=== PATIENT | male | born 1965 | race Caucasian/White ===

== ENCOUNTER 2023-01-14 20:51 | Inpatient (IN) | payer MEDICAID, OTHER ==
[~2023-01-14] VITALS: Ht 188 cm; Wt 151.0 kg
[2023-01-14 22:07] LABS: Basophils # (auto) 0.2 10 ^3/uL (0-0.2); Basophils % (auto) 1.5 % (0.0-2.0); Eosinophils # (auto) 0.3 10 ^3/uL (0-0.8); Eosinophils % (auto) 2.6 % (0.0-7.0); Hematocrit 42.9 % (41.0-53.0); Hemoglobin 14.6 g/dL (13.5-17.5); Lymphocytes # (auto) 1.7 10 ^3/uL (0.4-5.4); Lymphocytes % (auto) 13.2 % (10.0-50.0); Mean Corpuscular Hemoglobin 29.7 pg (28.0-32.0); Mean Corpuscular Hgb Conc. 34.1 g/dL (32.0-36.0); Mean Corpuscular Volume 87.1 fL (80.0-100.0); Monocytes # (auto) 1.4 10 ^3/uL (0-1.3); Monocytes % (auto) 10.3 % (0.0-12.0); Neutrophils # (auto) 9.6 10 ^3/uL (1.6-8.6); Neutrophils % (auto) 72.4 % (37.0-80.0); Nucleated Red Blood Cells % 0.3 %; Red Blood Cells 4.93 10^6/uL (4.5-5.90); Red Cell Distribution Width 15.2 % (11.8-14.3); White Blood Cell 13.2 10^3/uL (4.4-10.8)
[2023-01-14 22:33] LABS: Albumin 2.9 g/dL (3.4-5.0); Calcium 9.2 mg/dL (8.5-10.1); Potassium 4.4 mmol/L (3.5-5.1)
[2023-01-14 22:37] LABS: BUN/Creatinine Ratio 15.5 (10.0-20.0)
[2023-01-15] MEDS ORDERED: FUROSEMIDE 40 MG/4 ML VIAL IV ONE (00:15)
[2023-01-15] MEDS ORDERED: VANCOMYCIN 1GM/250ML 250 ML IV ONE (00:15)
[2023-01-15] MEDS ORDERED: PIPERACILLIN-TAZOB 3.375GM 100 ML IV ONE (00:15)
[2023-01-15] MEDS ORDERED: DEXTROSE (50%) 50ML SYRG IV PRN (02:00)
[2023-01-15] MEDS ORDERED: ONDANSETRON HCL 4 MG/2 ML VIAL IV PRN (02:00)
[2023-01-15 02:33] LABS: Urine Bacteria FEW /hpf (None Seen); Urine Blood TRACE /uL (Negative); Urine Hyaline Cast FEW /lpf (0 - 2); Urine Specific Gravity 1.015 (1.001-1.035); Urine WBC 1 /hpf (0 - 3)
[2023-01-15] MEDS: ACETAMINOPHEN 325 MG TAB PO PRN ×3 (04:24→19:46)
[2023-01-15] MEDS ORDERED: CLINDAMYCIN 600MG IV 50 ML IV SCH (06:00)
[2023-01-15] MEDS: ACCU-CHEK COMFORT CURVE STRIP VI SCH ×4 (06:39→21:58)
[2023-01-15] MEDS: InsuLIN REG 1unit/0.01ml Soln (100units/ml) SC SCH ×4 (06:39→21:58)
[2023-01-15] MEDS ORDERED: VANCOMYCIN PER PHARMACY 0 MG IV SCH (07:00)
[2023-01-15] MEDS: cefTRIAXone 1GM/50ML D5W 50 ML IV SCH (09:55)
[2023-01-15] MEDS ORDERED: PANTOPRAZOLE 40 MG TAB PO SCH (10:00)
[2023-01-15] MEDS: NIFEdipine ER 30 MG TAB PO SCH (10:30)
[2023-01-15] MEDS: METOPROLOL TARTRATE 25 MG TAB PO SCH ×2 (10:31→21:58)
[2023-01-15] MEDS: ENOXAPARIN SOD 30 MG/0.3 ML SYRINGE SC SCH (10:32)
[2023-01-15] MEDS: HYDROcodone-ACET 5/325MG TAB PO PRN (10:43)
[2023-01-15] MEDS: VANCOMYCIN 1GM/250ML 250 ML IV SCH (14:03)
[2023-01-15] MEDS: ATORVASTATIN 20 MG TAB PO SCH (21:57)
[2023-01-15] MEDS ORDERED: ATOR10TA52 PO (22:19)
[2023-01-15] MEDS ORDERED: METO25TA5 PO (22:19)
[2023-01-15] MEDS ORDERED: SITA25TA3 PO (22:19)
[2023-01-15] MEDS ORDERED: NIFE90TA75 (22:19)
[2023-01-15] MEDS ORDERED: ASPI81CH59 PO (22:19)
[2023-01-15] MEDS ORDERED: GLIP10TA9 PO (22:19)
[2023-01-15] MEDS ORDERED: LISI10TA34 PO (22:19)
[2023-01-15] MEDS ORDERED: FURO1TAB33 PO (22:19)
[2023-01-15] MEDS ORDERED: ERGO1CAP12 PO (22:19)
[2023-01-15 22:21] VITALS: BP 146/78
[2023-01-16] MEDS: VANCOMYCIN 1GM/250ML 250 ML IV SCH ×2 (02:10→14:05)
[2023-01-16 05:00] VITALS: BP_SYST 143; BP_SYST 149; BP_DIAS 64; BP_DIAS 74
[2023-01-16] MEDS: ACETAMINOPHEN 325 MG TAB PO PRN (05:16)
[2023-01-16 06:07] LABS: Basophils # (auto) 0.1 10 ^3/uL (0-0.2); Eosinophils # (auto) 0.4 10 ^3/uL (0-0.8); Eosinophils % (auto) 3.1 % (0.0-7.0); Hematocrit 43.5 % (41.0-53.0); Hemoglobin 14.5 g/dL (13.5-17.5); Lymphocytes # (auto) 1.2 10 ^3/uL (0.4-5.4); Lymphocytes % (auto) 10.9 % (10.0-50.0); Mean Corpuscular Hemoglobin 29.6 pg (28.0-32.0); Mean Corpuscular Hgb Conc. 33.4 g/dL (32.0-36.0); Mean Corpuscular Volume 88.4 fL (80.0-100.0); Monocytes # (auto) 1.2 10 ^3/uL (0-1.3); Monocytes % (auto) 10.3 % (0.0-12.0); Neutrophils # (auto) 8.4 10 ^3/uL (1.6-8.6); Neutrophils % (auto) 74.7 % (37.0-80.0); Nucleated Red Blood Cells % 0.2 %; Red Blood Cells 4.92 10^6/uL (4.5-5.90); Red Cell Distribution Width 14.8 % (11.8-14.3); White Blood Cell 11.3 10^3/uL (4.4-10.8)
[2023-01-16 06:13] LABS: Calcium 8.8 mg/dL (8.5-10.1); Magnesium 2.4 mg/dL (1.6-2.6); Potassium 4.9 mmol/L (3.5-5.1)
[2023-01-16 06:15] LABS: BUN/Creatinine Ratio 13.5 (10.0-20.0)
[2023-01-16] MEDS: ACCU-CHEK COMFORT CURVE STRIP VI SCH ×4 (06:35→23:15)
[2023-01-16] MEDS: InsuLIN REG 1unit/0.01ml Soln (100units/ml) SC SCH ×4 (06:36→22:00)
[2023-01-16 09:14] VITALS: BP 147/73
[2023-01-16] MEDS: ENOXAPARIN SOD 30 MG/0.3 ML SYRINGE SC SCH (09:16)
[2023-01-16] MEDS: cefTRIAXone 1GM/50ML D5W 50 ML IV SCH (09:16)
[2023-01-16] MEDS: METOPROLOL TARTRATE 25 MG TAB PO SCH ×2 (09:18→23:10)
[2023-01-16] MEDS: NIFEdipine ER 30 MG TAB PO SCH (09:27)
[2023-01-16 13:00] VITALS: BP 149/73
[2023-01-16 16:40] VITALS: BP 164/83
[2023-01-16 20:15] VITALS: BP 157/80
[2023-01-16 22:00] VITALS: BP_SYST 130; BP_SYST 157; BP_DIAS 80; BP_DIAS 82
[2023-01-16] MEDS: ATORVASTATIN 20 MG TAB PO SCH (23:11)
[2023-01-17] MEDS: VANCOMYCIN 1GM/250ML 250 ML IV SCH ×2 (02:13→14:37)
[2023-01-17 05:00] VITALS: BP 141/71
[2023-01-17] MEDS: ACCU-CHEK COMFORT CURVE STRIP VI SCH ×4 (06:39→21:43)
[2023-01-17] MEDS: InsuLIN REG 1unit/0.01ml Soln (100units/ml) SC SCH ×4 (06:40→21:53)
[2023-01-17 09:06] VITALS: BP 143/83
[2023-01-17] MEDS: METOPROLOL TARTRATE 25 MG TAB PO SCH ×2 (09:27→21:38)
[2023-01-17] MEDS: cefTRIAXone 1GM/50ML D5W 50 ML IV SCH (09:27)
[2023-01-17] MEDS: ENOXAPARIN SOD 30 MG/0.3 ML SYRINGE SC SCH (09:29)
[2023-01-17] MEDS: NIFEdipine ER 30 MG TAB PO SCH (09:29)
[2023-01-17 10:45] LABS: Hepatitis C Antibody Negative (Negative)
[2023-01-17 13:00] VITALS: BP 159/83
[2023-01-17 17:16] VITALS: BP 157/84
[2023-01-17 20:00] VITALS: BP 135/72
[2023-01-17] MEDS ORDERED: LISINOPRIL 20 MG TAB PO ONE (20:30)
[2023-01-17] MEDS ORDERED: hydrALAZINE HCL 20 MG/ML VL IV PRN (20:30)
[2023-01-17] MEDS: HYDROcodone-ACET 5/325MG TAB PO PRN (21:37)
[2023-01-17] MEDS: ATORVASTATIN 20 MG TAB PO SCH (21:38)
[2023-01-17 21:53] VITALS: BP 135/72
[2023-01-18] MEDS: VANCOMYCIN 1GM/250ML 250 ML IV SCH ×2 (02:19→14:41)
[2023-01-18 05:20] VITALS: BP 137/69
[2023-01-18] MEDS: ACCU-CHEK COMFORT CURVE STRIP VI SCH ×4 (05:56→22:37)
[2023-01-18] MEDS: InsuLIN REG 1unit/0.01ml Soln (100units/ml) SC SCH ×4 (06:03→22:43)
[2023-01-18 08:30] VITALS: BP 125/58
[2023-01-18] MEDS: cefTRIAXone 1GM/50ML D5W 50 ML IV SCH (09:16)
[2023-01-18] MEDS: METOPROLOL TARTRATE 25 MG TAB PO SCH ×2 (09:18→22:36)
[2023-01-18] MEDS: NIFEdipine ER 30 MG TAB PO SCH (09:20)
[2023-01-18] MEDS: ENOXAPARIN SOD 30 MG/0.3 ML SYRINGE SC SCH (09:21)
[2023-01-18] MEDS ORDERED: DAKINS HALF STR 0.25% (NaHypochlorite) 473 ML TOPICAL SOL TOP SCH (10:00)
[2023-01-18] MEDS ORDERED: LISINOPRIL 20 MG TAB PO SCH (10:00)
[2023-01-18] MEDS ORDERED: PROPOFOL 10 MG/ML 20 ML IV ONE (11:06)
[2023-01-18] MEDS ORDERED: GLYCOPYRROLATE 0.2 MG/ML 1ML VIAL ONE (11:06)
[2023-01-18] MEDS ORDERED: ONDANSETRON HCL 4 MG/2 ML VIAL ONE (11:06)
[2023-01-18] MEDS ORDERED: DexAMETHasone SOD PHOS 10MG/1ML VIAL INJ ONE (11:06)
[2023-01-18] MEDS ORDERED: KETOROLAC TROMETH 30 MG/ML 1ML VIAL ONE (11:06)
[2023-01-18] MEDS ORDERED: SODIUM CHLORIDE LOCK 0 ML ONE (11:13)
[2023-01-18] MEDS ORDERED: ePHEDrine SULFATE 50 MG/ML AMP ONE (11:13)
[2023-01-18 11:52] LABS: INR 1.07 (0.9-1.15); Partial Thromboplastin Time 31.1 sec (24.6-33.4)
[2023-01-18] MEDS ORDERED: ceFAZolin 1GM/50ML 100 ML IV ONE (12:31)
[2023-01-18] MEDS ORDERED: BUPIVACAINE 0.5% P/F INJ 10 ML VIAL ONE (12:39)
[2023-01-18] MEDS ORDERED: LIDOCAINE 1% HCL (LOCAL ANESTH.) INJ 20ML MDV ONE (12:39)
[2023-01-18] MEDS ORDERED: ceFAZolin 1GM VL ONE (12:53)
[2023-01-18] MEDS ORDERED: fentaNYL CITRATE 100 MCG/2 ML VL IV PRN (13:30)
[2023-01-18] MEDS ORDERED: ePHEDrine SULFATE 50 MG/ML AMP IV PRN (13:30)
[2023-01-18] MEDS ORDERED: LABETALOL HCL 5 MG/ML 4ML SYRINGE IV PRN (13:30)
[2023-01-18] MEDS ORDERED: hydrALAZINE HCL 20 MG/ML VL IV PRN (13:30)
[2023-01-18] MEDS ORDERED: FLUMAZENIL 0.1 MG/ML INJ 10ML MDV IV PRN (13:30)
[2023-01-18] MEDS ORDERED: ONDANSETRON HCL 4 MG/2 ML VIAL IV PRN (13:30)
[2023-01-18] MEDS ORDERED: NALOXONE HCL 0.4 MG/ML VIAL IV PRN (13:30)
[2023-01-18] MEDS ORDERED: HYDROmorphone HCL 2 MG/ML VL/or syr IV PRN (13:30)
[2023-01-18 16:27] VITALS: BP 141/81
[2023-01-18 20:00] VITALS: BP 136/80
[2023-01-18 22:00] VITALS: BP 136/80
[2023-01-18] MEDS: ATORVASTATIN 20 MG TAB PO SCH (22:35)
[2023-01-19] MEDS: VANCOMYCIN 1GM/250ML 250 ML IV SCH (02:00)
[2023-01-19 05:00] VITALS: BP 144/75
[2023-01-19] MEDS: ACCU-CHEK COMFORT CURVE STRIP VI SCH (05:48)
[2023-01-19] MEDS: InsuLIN REG 1unit/0.01ml Soln (100units/ml) SC SCH (05:56)
[2023-01-19 06:12] LABS: Basophils # (auto) 0 10 ^3/uL (0-0.2); Basophils % (auto) 0.1 % (0.0-2.0); Eosinophils # (auto) 0 10 ^3/uL (0-0.8); Hematocrit 45.1 % (41.0-53.0); Hemoglobin 15.2 g/dL (13.5-17.5); Lymphocytes # (auto) 0.7 10 ^3/uL (0.4-5.4); Lymphocytes % (auto) 5.2 % (10.0-50.0); Mean Corpuscular Hemoglobin 29.3 pg (28.0-32.0); Mean Corpuscular Hgb Conc. 33.7 g/dL (32.0-36.0); Mean Corpuscular Volume 86.9 fL (80.0-100.0); Monocytes # (auto) 0.5 10 ^3/uL (0-1.3); Monocytes % (auto) 4.1 % (0.0-12.0); Neutrophils % (auto) 90.6 % (37.0-80.0); Nucleated Red Blood Cells % 0.1 %; Red Cell Distribution Width 14.7 % (11.8-14.3); White Blood Cell 13.3 10^3/uL (4.4-10.8)
[2023-01-19 06:39] LABS: Potassium 4.9 mmol/L (3.5-5.1)
[2023-01-19 06:45] LABS: BUN/Creatinine Ratio 18.4 (10.0-20.0); Calcium 9.7 mg/dL (8.5-10.1); Magnesium 2.4 mg/dL (1.6-2.6)
[2023-01-19 09:00] VITALS: BP 159/79
== END 2023-01-19 10:41 | disposition left against medical advice (07) | DRG 380 ==
LOC: ER 20:51 → EDBD 20:51 → OVERFLOW 01-15 02:02 → WEST WING 01-15 21:01
PROVIDERS: ADMIT Nurse Practitioner; ATTEND Internal Medicine Geriatric Medicine
PROC: 0JBR0ZZ Excision of Left Foot Subcutaneous Tissue and Fascia, Open Approach (ICD-10-PCS; principal; 2023-01-18 12:50)
DX: E11.621 Type 2 diabetes mellitus with foot ulcer (principal); L97.529 Non-pressure chronic ulcer of other part of left foot with unspecified severity; E44.1 Mild protein-calorie malnutrition; E87.1 Hypo-osmolality and hyponatremia; E11.22 Type 2 diabetes mellitus with diabetic chronic kidney disease; E11.42 Type 2 diabetes mellitus with diabetic polyneuropathy; I50.9 Heart failure, unspecified; I13.0 Hypertensive heart and chronic kidney disease with heart failure and stage 1 through stage 4 chronic kidney disease, or unspecified chronic kidney disease; L03.116 Cellulitis of left lower limb; E66.01 Morbid (severe) obesity due to excess calories; Z53.29 Procedure and treatment not carried out because of patient's decision for other reasons; N18.9 Chronic kidney disease, unspecified; E11.65 Type 2 diabetes mellitus with hyperglycemia; Z68.39 Body mass index [BMI] 39.0-39.9, adult
CPT/HCPCS: 36415; 71045; 73630; 73700; 73721; 80048; 80053; 80202; 81001; 82565; 82962; 83735; 83880; 85025; 85610; 85652; 85730; 86141; 86803; 86850; 86900; 86901; 87040; 87070; 87075; 87076; 87077; 87186; 87205; 87340; 96365; 96366; 96367; 96372; 96375; G0378; J0690; J0696; J1100; J1815; J1885; J2001; J2405; J2543; J2704; J3490